=== PATIENT | female | born 1935 | race Caucasian/White ===

== ENCOUNTER 2016-12-16 20:22 | Inpatient (IN) | payer OTHER, MEDICAID ==
[~2016-12-16] VITALS: Ht 149.9 cm; Wt 66.5 kg
[~2016-12-16 20:22] MED LIST: A/B OTIC15 ML; CLA10 PO; COR200 PO; COR6 PO; COREG12.5 MG PO; JANUMET PO; JANUMET1 TAB PO; LOT1C TOP; NAP500 PO; PANTOPRAZOLE SO40 M1 PO; PLA75 PO; RAN500A PO; RESTORIL15 MG PO; VITAMIN D32000 I2 PO; XARELTO20 M1 PO; ZES5 PO; ZOFRAN ODT4 MG SL
[2016-12-16 21:41] LABS: BASOPHIL % 0.6 % (0-2); PLATELET COUNT 176 x10^3mcL (130-400); RED CELL DISTRIBUTION WIDTH 13.8 % (11.5-14.5)
[2016-12-16 21:49] LABS: CALCIUM 8.6 mg/dL (8.5-10.1); CARBON DIOXIDE 29.3 mmol/L (21-32); CHLORIDE SERUM 104 mmol/L (98-107); CREATININE SERUM 0.8 mg/dL (0.6-1.0); GLUCOSE SERUM 134 mg/dL (74-106); POTASSIUM SERUM 4.3 mmol/L (3.5-5.1); SODIUM SERUM 140 mmol/L (136-145)
[2016-12-16 21:54] LABS: ALBUMIN 3.8 g/dL (3.4-5.0); ALKALINE PHOSPHATASE 73 U/L (46-116); ALT/SGPT 15 U/L (14-59); AST/SGOT 16 U/L (15-37); BILIRUBIN TOTAL 0.65 mg/dL (0.20-1.00); TOTAL PROTEIN, SERUM 7.2 g/dL (6.4-8.2)
[2016-12-16 22:08] LABS: CK-MB 1.8 ng/mL (0-3.6)
[2016-12-17] VITALS (7 sets, daily range): BP systolic 99–131; BP diastolic 54–79
[2016-12-17 01:05] LABS: MAGNESIUM 1.9 mg/dL (1.8-2.4); PHOSPHOROUS 3.4 mg/dL (2.5-4.9)
[2016-12-17 01:08] LABS: CHOLESTEROL/HDL RATIO 2.5
[2016-12-17 01:14] LABS: T3 TOTAL 1.28 ng/mL
[2016-12-17 01:17] LABS: FREE T4 1.43 ng/dL (0.76-1.46); FREE THYROXINE INDEX 2.9 ug/dL (1.4-4.5); T4(THYROXINE) 8.4 ug/dL (4.7-13.3)
[2016-12-18 06:02] LABS: BASOPHIL % 0.7 % (0-2); PLATELET COUNT 155 x10^3mcL (130-400); RED CELL DISTRIBUTION WIDTH 14.1 % (11.5-14.5)
[2016-12-18 06:09] VITALS: BP 109/64
[2016-12-18 06:48] LABS: CALCIUM 8.7 mg/dL (8.5-10.1); CARBON DIOXIDE 27.9 mmol/L (21-32); CHLORIDE SERUM 108 mmol/L (98-107); CREATININE SERUM 0.8 mg/dL (0.6-1.0); GLUCOSE SERUM 103 mg/dL (74-106); PHOSPHOROUS 4.1 mg/dL (2.5-4.9); POTASSIUM SERUM 4.1 mmol/L (3.5-5.1); SODIUM SERUM 143 mmol/L (136-145)
[2016-12-18 07:35] VITALS: BP 115/62
[2016-12-18 09:48] VITALS: BP 114/62
[2016-12-18 11:11] VITALS: BP 115/62
[2016-12-18] MEDS ORDERED: JANUMET 50-1,01 EACH PO (11:31)
== END 2016-12-18 12:22 | disposition home or self-care (01) | DRG 205 ==
LOC: ED 20:22 → DU 23:22 → ED 23:57 → DU 23:57
PROVIDERS: Emergency Medicine; ADMIT Family Medicine
DX: M94.0 Chondrocostal junction syndrome [Tietze] (principal); N17.0 Acute kidney failure with tubular necrosis; I42.0 Dilated cardiomyopathy; G90.9 Disorder of the autonomic nervous system, unspecified; E86.0 Dehydration; I11.0 Hypertensive heart disease with heart failure; E11.65 Type 2 diabetes mellitus with hyperglycemia; Z95.810 Presence of automatic (implantable) cardiac defibrillator
CPT/HCPCS: 82962; 83880; 84439; 97110-GP; 97116-GP; 97530-GP; C9113; J7030; J7040; Q0092

== ENCOUNTER 2018-09-29 06:45 | Emergency (ER) | payer OTHER, MEDICAID ==
[~2018-09-29] VITALS: Ht 152.4 cm; Wt 60.3 kg
[~2018-09-29 06:45] MED LIST changes: +JANUMET 50-1,01 EACH PO
[2018-09-29 06:52] VITALS: Ht 152.4 cm; Wt 60.3 kg
[2018-09-29 08:05] LABS: BASOPHIL % 0.3 % (0-2); PLATELET COUNT 158 x10^3mcL (130-400)
[2018-09-29 08:06] LABS: CALCIUM 8.7 mg/dL (8.5-10.1); CARBON DIOXIDE 29.3 mmol/L (21-32); CHLORIDE SERUM 103 mmol/L (98-107); GLUCOSE SERUM 182 mg/dL (74-106); POTASSIUM SERUM 4.2 mmol/L (3.5-5.1); SODIUM SERUM 138 mmol/L (136-145)
[2018-09-29 08:09] LABS: ALBUMIN 3.6 g/dL (3.4-5.0); ALKALINE PHOSPHATASE 80 U/L (46-116); ALT/SGPT 15 U/L (14-59); AST/SGOT 16 U/L (15-37); BILIRUBIN TOTAL 1.07 mg/dL (0.20-1.00); TOTAL PROTEIN, SERUM 7.6 g/dL (6.4-8.2)
[2018-09-29 08:18] LABS: UA SPECIFIC GRAVITY >=1.030 (1.005-1.035); microscopic required? YES; urine erythrocyte TRACE (NEGATIVE)
[2018-09-29] MEDS ORDERED: MAGNESIUM OXID400 MG PO (08:39)
[2018-09-29] MEDS ORDERED: ELIQUIS2.5 MG PO (08:39)
[2018-09-29] MEDS ORDERED: VITAMIN D50000 I4 PO (08:39)
[2018-09-29] MEDS ORDERED: BACTRIM DS1 TAB PO (08:41)
[2018-09-29] MEDS ORDERED: MULTAQ400 MG PO (08:42)
[2018-09-29] MEDS ORDERED: LIPI20 PO (08:42)
[2018-09-29] MEDS ORDERED: BACO TOP (08:42)
[2018-09-29] MEDS ORDERED: TRIAMCINOLONE AC0.51 (08:43)
[2018-09-29 12:47] VITALS: BP 101/61
== END 2018-09-29 12:58 | disposition home or self-care (01) ==
LOC: ED 06:45
PROVIDERS: Emergency Medicine
DX: B34.9 Viral infection, unspecified (principal); E11.9 Type 2 diabetes mellitus without complications; E78.5 Hyperlipidemia, unspecified; I50.9 Heart failure, unspecified; I11.0 Hypertensive heart disease with heart failure; E78.00 Pure hypercholesterolemia, unspecified; M81.0 Age-related osteoporosis without current pathological fracture; M19.90 Unspecified osteoarthritis, unspecified site; Z86.73 Personal history of transient ischemic attack (TIA), and cerebral infarction without residual deficits; Z95.0 Presence of cardiac pacemaker
CPT/HCPCS: 87804; J1885; J2405; J3490; J7030; Q0092

== ENCOUNTER 2019-04-30 22:53 | Emergency (ER) | payer OTHER, MEDICAID ==
[~2019-04-30] VITALS: Ht 149.9 cm; Wt 68.0 kg
[~2019-04-30 22:53] MED LIST changes: +BACO TOP; +BACTRIM DS1 TAB PO; +ELIQUIS2.5 MG PO; +LIPI20 PO; +MAGNESIUM OXID400 MG PO; +MULTAQ400 MG PO; +TRIAMCINOLONE AC0.51; +VITAMIN D50000 I4 PO
[2019-04-30 23:19] VITALS: Ht 149.9 cm; Wt 68.0 kg
[2019-05-01 02:40] VITALS: BP 116/70
== END 2019-05-01 02:41 | disposition home or self-care (01) ==
LOC: ED 22:53
DX: L30.9 Dermatitis, unspecified (principal); I11.0 Hypertensive heart disease with heart failure; I50.9 Heart failure, unspecified; E11.9 Type 2 diabetes mellitus without complications; E78.00 Pure hypercholesterolemia, unspecified; M19.90 Unspecified osteoarthritis, unspecified site; M81.0 Age-related osteoporosis without current pathological fracture; Z95.0 Presence of cardiac pacemaker; Z86.73 Personal history of transient ischemic attack (TIA), and cerebral infarction without residual deficits
CPT/HCPCS: J1100

== ENCOUNTER 2019-06-09 19:42 | Emergency (ER) | payer OTHER, MEDICAID ==
[~2019-06-09] VITALS: Ht 160 cm; Wt 95.3 kg
[2019-06-09 19:45] VITALS: Ht 160 cm; Wt 95.3 kg
[2019-06-09 21:15] VITALS: BP 117/43
== END 2019-06-09 21:15 | disposition home or self-care (01) ==
LOC: ED 19:42
DX: L03.115 Cellulitis of right lower limb (principal); I11.0 Hypertensive heart disease with heart failure; I50.9 Heart failure, unspecified; E11.9 Type 2 diabetes mellitus without complications; E78.00 Pure hypercholesterolemia, unspecified; M19.90 Unspecified osteoarthritis, unspecified site; Z98.890 Other specified postprocedural states
CPT/HCPCS: J0696

== ENCOUNTER 2019-09-16 18:40 | Inpatient (IN) | payer OTHER, MEDICAID ==
[~2019-09-16] VITALS: Ht 152.4 cm; Wt 61.5 kg
[2019-09-16 18:48] VITALS: Ht 152.4 cm; Wt 61.5 kg
--- NOTE | 2019-09-16 19:22 | NUR ---
PT PRESENTS TO ED WITH [facility] FROM HOME C/O GEN ABDOMINAL PAIN X 2 DAYS. PER PT SHE HAS NOT HAD A BOWEL MOVEMENT IN 4 DAYS. PT ABDOMEN IS SOFT AND NON TENDER. BOWEL SOUNDS HEARD IN ALL 4 QUADRANTS. PT STATES THAT SHEHAS BEEN SICK WITH THE FLU X 1 WEEK AGO, HOWEVER DENIES ANY OF THOSE SXS NOW. PT HAS AUDIBLE WET COUGH HEARD. PT HAS DIMINISHED LUNG SOUNDS IN ALL MARTÍNEZ. PT AXO X4. PT SPEAKING IN CLEAR AND FULL SENTENES. PT IN 10 PAIN. PT STATES THAT SHE WAS AT [facility] ON [address] A FEW DAYS AGO BECAUSE HER PACEMAKER SHOCKED HER, BUT DENIES CHEST PAIN AT THIS TIME. PT IN MILD DISTRESS AT THSI TIME. AWAITING MSE. PT CONNECTED TO FULL CM AND PULSE OX MONITORS. IRREGULAR RHYTHM SEEN ON THE MONTIOR. READ EKG AT THIS TIME
--- NOTE | 2019-09-16 19:28 | NUR ---
PT STATES THAT IT IS A PACEMAKER AND DEFIBRILLATOR. NO PACER SPIKES SEEN ON EKG. PT APPEARS TO BE IN AFIB
--- NOTE | 2019-09-16 19:32 | NUR ---
PT TAKEN TO XRAY VIA WHEELCHAIR AT THIS TIME
[2019-09-16 19:56] LABS: BASOPHIL % 0.3 % (0-2); PLATELET COUNT 221 x10^3mcL (130-400); RED CELL DISTRIBUTION WIDTH 13.5 % (11.5-14.5)
[2019-09-16 20:28] LABS: CALCIUM 8.6 mg/dL (8.5-10.1); CARBON DIOXIDE 24.8 mmol/L (21-32); CHLORIDE SERUM 100 mmol/L (98-107); CREATININE SERUM 0.7 mg/dL (0.6-1.0); GLUCOSE SERUM 166 mg/dL (74-106); POTASSIUM SERUM 3.4 mmol/L (3.5-5.1); SODIUM SERUM 136 mmol/L (136-145)
[2019-09-16 20:36] LABS: ALKALINE PHOSPHATASE 67 U/L (46-116); ALT/SGPT 22 U/L (14-59); AST/SGOT 18 U/L (15-37); BILIRUBIN TOTAL 0.93 mg/dL (0.20-1.00); TOTAL PROTEIN, SERUM 7.4 g/dL (6.4-8.2)
--- NOTE | 2019-09-16 22:51 | NUR ---
WAITING TO START ABX FOR BLOOD CULTURE DRAW AT THIS TIME
[2019-09-16] MEDS ORDERED: ELIQUIS2.5 MG PO (23:04)
[2019-09-16] MEDS ORDERED: ESCITALOPRAM OX10 MG PO (23:05)
--- NOTE | 2019-09-16 23:24 | NUR ---
RESIDENTS AT BEDSIDE AT THIS TIME FAMILY AT BEDSIDE WELL
[2019-09-16 23:46] LABS: MAGNESIUM 1.7 mg/dL (1.8-2.4); PHOSPHOROUS 3.9 mg/dL (2.5-4.9)
--- NOTE | 2019-09-16 23:52 | NUR ---
REPORT TERRY MORELAND RN. ALL QUESTIONS AND CONCERNS ADDRESSED AT THIS TIME
--- NOTE | 2019-09-17 00:10 | NUR ---
ADMITTED PT FROM ER WITH C/O ABDOMINAL PAIN.NO N/V NOTED AT THIS TIME WITH GRAND DAUGHTER AT BEDSIDE HELPING WITH TRANSLATION.UKRAINIAN SPEAKING ONLY.C/O NO BM X 2WKS.ADMITTING DX PNEUMONIA.PT WITH ON AND OFF PRODUCTIVE COUGHING WITH REPORTS OF SMALL WHITISH PHLEGM.DIMINISHED BREATHSOUNDS.O2 SAT @ 96% ROOMAIR.BP 109/65 MMHG,HR 61.PLACED ON TELE # 16 WITH READING AFIB.CARDIZEM 5 MG IVP ADMINISTERED ORDERED.ADMISSION CARE RENDERED.ZITHROMAX IV ATB STILL INFUSING FROM ER.ADMISSION CARE RENDERED.ORIENTATION TO ROOM AND CALL BUTTON PROVIDED.IN NO DISTRESS.WILL CONTINUE TO MONITOR.
--- NOTE | 2019-09-17 01:01 | NUR ---
REFUSED PO POTASSIUM AND MAG CITRATE.EXPLAINED IMPORTANCE OF MEDS BUT STRONGLY REFUSING.ONLY TOOK PO MAGNESIUM.GRAND DAUGHTER AT BEDSIDE ALSO HELPING WITH TRANSLATION .
[2019-09-17 01:03] VITALS: BP 109/65
[2019-09-17 01:13] LABS: FREE T4 1.85 ng/dL (0.76-1.46); FREE THYROXINE INDEX 3.5 ug/dL (1.4-4.5)
[2019-09-17 02:11] LABS: T3 TOTAL 0.94 ng/mL
--- NOTE | 2019-09-17 02:35 | NUR ---
CALLED [facility] AND SPOKE WITH CHARLY REGARDING ORDER FOR PACEMAKER INTERROGATION.INFORMATION GIVEN AND WOULD SENT OUT CITY SURVEYOR TO INTERROGATE PACEMAKER.WILL ENDORSE TO AM NURSE.
[2019-09-17 03:19] LABS: CHOLESTEROL/HDL RATIO 4.5
--- NOTE | 2019-09-17 04:46 | NUR ---
PT SLEPT WITH INTERVALS WITH DAUGHTER AT BEDSIDE.BM X1 TO LARGE LOOSE STOOL AFTER SIPS OF MAG CITRATE EARLIER.DENIES ABDOMINAL PAIN.NO N/V NOTED.DENIES CHESTPAIN.HR NOW @ LOW 90'S.NO ASE NOTED FROM ZITHROMAX IV ATB.ALL NEEDS MET.WILL CONTINUE TO MONITOR.
[2019-09-17 05:14] VITALS: BP 107/79
[2019-09-17 07:08] LABS: BASOPHIL % 0.5 % (0-2); PLATELET COUNT 195 x10^3mcL (130-400); RED CELL DISTRIBUTION WIDTH 12.9 % (11.5-14.5)
--- NOTE | 2019-09-17 07:19 | NUR ---
RECEIVED REPORT FROM ANICETO BARAHONA. PATIENT RESTING COMFORTABLY IN BED WITH ALL NEEDS MET. SALINE LOCK TO LFA IS PATENT AND INTACT. NO REDNESS OR PAIN. TELE # [address] PT DENIES CHEST PAIN. PT ON ROOM AIR. NO C/O SOB AND NO DISTRESS NOTED. ALL QUESTIONS AND CONCERNS ADDRESSED.
[2019-09-17 07:33] LABS: CALCIUM 8.4 mg/dL (8.5-10.1); CARBON DIOXIDE 26.2 mmol/L (21-32); CHLORIDE SERUM 104 mmol/L (98-107); CREATININE SERUM 0.7 mg/dL (0.6-1.0); GLUCOSE SERUM 152 mg/dL (74-106); PHOSPHOROUS 3.6 mg/dL (2.5-4.9); POTASSIUM SERUM 3.3 mmol/L (3.5-5.1); SODIUM SERUM 139 mmol/L (136-145)
[2019-09-17 08:40] VITALS: BP 108/54
--- NOTE | 2019-09-17 10:20 | NUR ---
TECH IN TO INTERROGATE PACEMAKER. PT ALSO HAS DIARRHEA AND HAD BOWEL MOVEMENT ON BED.
--- NOTE | 2019-09-17 10:32 | NUR ---
ROUNDS: DR QUIRZO, [facility]. PT CURRENTLY IN THE RESTROOM WITH DIARRHEA. REQUESTED FROM MD TO CHANGE PO KLOR TO IV POTASSIUM PATIENT REFUSES TO TAKE IT IT UPSETS HER STOMACH.
--- NOTE | 2019-09-17 10:53 | NUR ---
PATIENT REQUESTING ECHOCARDIOGRAM BE DONE AFTER SHE GETS MEDICATED FOR STOMACH PAIN
[2019-09-17 12:09] VITALS: BP 122/93
--- NOTE | 2019-09-17 13:40 | NUR ---
PATIENT REFUSED ECHOCARDIOGRAM-STATES SHE HAS HER HEART CHECKED EVERY 3 MONTHS
--- NOTE | 2019-09-17 14:12 | NUR ---
IN TO SEE PATIENT AND ASSESS NEEDS AFTER LUNCH. PT SLEEPING COMFORTABLY IN BED. NO NEEDS IDENTIFIED.
--- NOTE | 2019-09-17 16:01 | NUR ---
SPOKE WITH DR CHAND TO REQUEST PATIENT RECEIVE ENSURE WITH ALL MEALS. DR CHAND TO PLACE ORDER.
--- NOTE | 2019-09-17 16:36 | NUR ---
DR WIGGINS IN TO SEE AND ASSESS PATIENT.
[2019-09-17 16:38] VITALS: BP 127/56
--- NOTE | 2019-09-17 17:08 | NUR ---
DR CHAND PAGE GATED TO AGAIN REQUEST ENSURE BE ADDED TO MEALS.
--- NOTE | 2019-09-17 18:31 | NUR ---
PATIENT RESTING IN BED C/O MILD NAUSEA AND DID NOT EAT DINNER. MYLANTA MAALOX UNABLE TO GIVE UNTIL 1999. PT NOTIFIED. SALINE LOCK TO LFA IS PATENT AND INTACT. MILD DICSOMFORT REPORTED DUE TO LOCATION. ALL OTHER NEEDS MET. WILL ENDORSE ALL CARE TO ONCOMING NURSE.
--- NOTE | 2019-09-17 20:00 | NUR ---
RECEIVED PATIEN TIN BED AWAKE, ALERT AND ORIENTED WITH NO C/O PAIN AND DISCOMFORT AT THIS TIME. BREATHING EASY AND NONLABOR SATTING AT 985 RA. TELE#16 AFIB WITH RVR AND OCCASIONAL PVC ON MONITOR, DENIES CHESTPAIN. TRACED EDEMA NOTED TO BLE. HEPLOCK TO RFA FLUSHED WITH NS. WILL CONTINUE TO MONITOR. CALL LIGHT WITHIN REACH.
[2019-09-17 21:12] VITALS: BP 112/60
--- NOTE | 2019-09-18 00:47 | NUR ---
BREATHING EASY AND NONLABOR, APPEAR TO BE SLEEPING THIS TIME. WILL CONTINUE TO MONITOR.
--- NOTE | 2019-09-18 05:13 | NUR ---
CHECKED AT INTERVALS FOR NEEDS NEEDS AND SAFETY. NO SIGNIFICANT CHANGES IN CONDITION NOTED. ALL NEEDS ATTENDED,
[2019-09-18 05:41] VITALS: BP 123/60
[2019-09-18 06:28] LABS: BASOPHIL % 0.5 % (0-2); PLATELET COUNT 209 x10^3mcL (130-400); RED CELL DISTRIBUTION WIDTH 13.4 % (11.5-14.5)
[2019-09-18 06:46] LABS: CALCIUM 8.6 mg/dL (8.5-10.1); CARBON DIOXIDE 27.9 mmol/L (21-32); CHLORIDE SERUM 103 mmol/L (98-107); CREATININE SERUM 0.7 mg/dL (0.6-1.0); GLUCOSE SERUM 95 mg/dL (74-106); PHOSPHOROUS 3.1 mg/dL (2.5-4.9); POTASSIUM SERUM 3.8 mmol/L (3.5-5.1); SODIUM SERUM 138 mmol/L (136-145)
--- NOTE | 2019-09-18 07:12 | NUR ---
RECEIVED REPORT FROM TRISTEN BARAHONA. PATIENT RESTING COMFORTABLY IN BED WITH ALL NEEDS MET. SALINE LOCK TO LFA IS PATENT AND INTACT. NO REDNESS OR PAIN. TELE # [address] PT DENIES CHEST PAIN. PT ON ROOM AIR. NO C/O SOB AND NO DISTRESS NOTED. PT NOTIFIED OF POSSIBLE PROCEDURE AND INSTRUCTED NOT TO EAT OR DRINK ANYTHING TO PREPARE. DR CARTER TO SEE PATIENT AND DISCUSS PROCEDURE IF HE DEEMS NECESSARY. ALL QUESTIONS AND CONCERNS ADDRESSED.
[2019-09-18 08:21] VITALS: BP 125/76
--- NOTE | 2019-09-18 11:01 | NUR ---
DR CARTER IN TO SEE PATIENT, PERFORM ASSESSMENT, AND DISCUSS EGD. PT AGREEABLE TO PROCEDURE. CONSENT AND CHECKLIST COMPLETED.
--- NOTE | 2019-09-18 11:25 | NUR ---
REPORT GIVEN TO VIRAL BARAHONA IN GI LAB. ALL QUESTIONS AND CONCERNS ADDRESSED. DENISE BARAHONA IN TO TAKE PATIENT DOWN FOR EGD.
--- NOTE | 2019-09-18 12:41 | NUR ---
RECEIVED REPORT FROM POST OP RN. PT EGD COMPLETE. DIAGNOSIS LARGE ULCERATED DU MASS??? DR ORDERED TO HOLD ELIQUIS UNTIL PATIENT CAN HAVE REPEAT EGD ON TUESDAY. PT OK TO EAT IF APPETITE ALLOWS.
[2019-09-18 12:53] VITALS: BP 123/71
--- NOTE | 2019-09-18 12:53 | NUR ---
PT RETURNED TO FLOOR FROM EGD. VITALS TAKEN (SEE DOCUMENTATION). PT RESTING COMFORTABLY IN BED WITH ALL NEEDS MET.
--- NOTE | 2019-09-18 17:04 | NUR ---
SPOKE WITH DR CARTER TO INFORM THAT PATIENT WILL NOT BE ABLE TO DRINK CONTRAST FOR CT. DR CARTER WANTS TO WAIT UNTIL CONTRAST CAN BE TOLERATED. HE DOES NOT WANT THE SCAN WITHOUT BOTH IV AND PO CONTRAST. CT CALLED AND NOTIFIED.
[2019-09-18 17:36] VITALS: BP 106/65
--- NOTE | 2019-09-18 19:10 | NUR ---
REPORT RECEIVED FROM DAY SHIFT RN. PATIENT WAS SEEN RESTING COMFORTABLY IN BED. NO DISTRESS NOTED. BREATHING EVEN AND UNLABORED ON ROOM AIR. NO SOB OR RESP DISTRESS NOTED. DENIES CHEST PAIN/PRESSURE. NO C/O PAIN. IV TO THE RFA. SALINE LOCK. PATENT AND INTACT. NO REDNESS OR SWELLING NOTED. COMFORTA ND SAFETY MEASURES IN PLACE. BED IS LOCKED AND IN THE LOWEST POSITION. SIDE RAILS UP X2. CALL LIGHT IS WITHIN REACH. WILL CONTINUE TO MONITOR.
--- NOTE | 2019-09-18 19:45 | NUR ---
REPORT GIVEN TO MARCIN BARAHONA. PT RESTING COMFORTABLY IN BED WITH ALL NEEDS MET. ALL QUESTIONS AND CONCERNS ADDRESSED. ALL CARES ENDORSED.
[2019-09-18 20:13] VITALS: BP 122/68
--- NOTE | 2019-09-18 20:13 | NUR ---
FOUNDATION DIGGER REPORTED PT IS SATING AT 92% ON ROOM AIR. PLACED 2L NC ON PATIENT; NOW SATING 95%. NO DISTRESS NOTED. BREATHING EVEN. WILL CONTINUE TO MONITOR.
--- NOTE | 2019-09-18 21:34 | NUR ---
PATIENT REFUSED SCHEDULED MED. BS 155 REFUSED INSULIN. EDUCATED PATIENT ON THE IMPROTANCE OF TAKING MEDICATIONS. PATIENT REFUSED.
--- NOTE | 2019-09-19 01:20 | NUR ---
RESTING IN BED WITH EYES CLOSED. NO DISTRESS NOTED. BREATHING EVEN AND UNLABORED ON 2LNC. NO SOB OR RESP DISTRESS NOTED. SAFETY MEASURES IN PLACE. CALL LIGHT IS WITHIN REACH. WILL CONTINUE TO MONITOR.
[2019-09-19 05:33] VITALS: BP 102/69
[2019-09-19 06:35] LABS: BASOPHIL % 0.3 % (0-2); PLATELET COUNT 203 x10^3mcL (130-400); RED CELL DISTRIBUTION WIDTH 13.5 % (11.5-14.5)
[2019-09-19 06:58] LABS: CALCIUM 8.3 mg/dL (8.5-10.1); CARBON DIOXIDE 30.3 mmol/L (21-32); CHLORIDE SERUM 102 mmol/L (98-107); CREATININE SERUM 0.7 mg/dL (0.6-1.0); GLUCOSE SERUM 165 mg/dL (74-106); MAGNESIUM 1.9 mg/dL (1.8-2.4); PHOSPHOROUS 2.9 mg/dL (2.5-4.9); POTASSIUM SERUM 4.1 mmol/L (3.5-5.1); SODIUM SERUM 139 mmol/L (136-145)
--- NOTE | 2019-09-19 07:30 | NUR ---
PT IS AAOX4, LITHUANIAN SPEAKING. TELE [address] READING PACED ON DEMAND, UNDERLYING RHTHYM NSR WITH PVCS. RESP EVEN, SHALLOW, UNLABORED. LUNG SOUNDS DIMINISHED BILATERALLY. PT HAS C/O DIARRHEA. ABDOMEN SOFT, NONTENDER, NONDISTENDED. BOWEL SOUNDS ACTIVE X4 QUADS. DENIES N/V. NO DIARRHEA AT THIS TIME. PT HAS BLE TRACE EDEMA. PERIPHERAL PULSES MODERATELY PALPABLE. SKIN WARM AND CDI. IV CATH TO FRA 20 G FLUSHED, PATENT AND S/L. SITE WNL. COVERED WITH CDI OCCLUSIVE DRESSING. PT DENIES PAIN AND DISCOMFORT AT THIS TIME. CALL LIGHT WITHIN REACH. BED IN LOWEST POSITION. BED ALARM ON. FALL PROTOCOL MAINTAINED.
--- NOTE | 2019-09-19 07:35 | NUR ---
RESTING IN LONG INTERVALS THROUGHOUT THE NIGHT. NO ACUTE CHANGES NOTED. BREATHING EVEN AND UNLABORED. NO SOB NOTED. NO DISTRESS NOTED. SAFETY MEASURES IN PLACE. ALL NEEDS AND CONCERNS ADDRESSED. CALL LIGHT IS WITHIN REACH. WILL ENDORSE CARE TO DAY SHIFT RN.
[2019-09-19 08:03] VITALS: BP 101/71
--- NOTE | 2019-09-19 08:33 | NUR ---
PT COMPLETED ORAL CONTRAST DYE, FOXER MADE AWARE.
--- NOTE | 2019-09-19 09:35 | NUR ---
PT PULLED OUT IV CATH TO RFA WITH CATH INTACT. SITE WNL. COVERED WITH GAUZE AND BANDAID. NEW IV CATH 20G STARTED TO RFA. SITE WNL COVERED WITH CDI OCCLUSIVE DRESSING. PT TOLERATED PROCEDURE WELL.
--- NOTE | 2019-09-19 09:40 | NUR ---
SCHEDULED MEDS GIVEN AND TOLERATED WELL. B/P 107/69, (81), HR 91. RESP EVEN AND UNLABORED. 02 N/C AT [address] PT DENIES PAIN AT THIS TIME. CALL LIGHT WITHIN REACH .
--- NOTE | 2019-09-19 10:36 | NUR ---
PT IS AAOX4, ALBANIAN SPEAKING. TELE [address] READING PACED ON DEMAND, UNDERLYING RHTHYM NSR WITH PVCS. RESP EVEN, SHALLOW, UNLABORED. LUNG SOUNDS DIMINISHED BILATERALLY. PT HAS C/O DIARRHEA. ABDOMEN SOFT, NONTENDER, NONDISTENDED. BOWEL SOUNDS ACTIVE X4 QUADS. DENIES N/V. NO DIARRHEA AT THIS TIME. PT HAS BLE TRACE EDEMA. PERIPHERAL PULSES MODERATELY PALPABLE. SKIN WARM AND CDI. IV CATH TO FRA 20 G FLUSHED, PATENT AND S/L. SITE WNL. COVERED WITH CDI OCCLUSIVE DRESSING. PT DENIES PAIN AND DISCOMFORT AT THIS TIME. CALL LIGHT WITHIN REACH. BED IN LOWEST POSITION. BED ALARM ON. FALL PROTOCOL MAINTAINED.
--- NOTE | 2019-09-19 11:32 | NUR ---
CALLED DR. WIGGINS AND LEFT MESSAGE REGARDING PT HAVING 6 SECOND RUN OF VTACH. AWAITING CALL BACK.
--- NOTE | 2019-09-19 11:49 | NUR ---
ZAYRA RICHARDSON MADE AWARE THAT PT HAS 6 SECOND RUN OF VTACH. NO NEW ORDERS AT THIS TIME. WILL CONTINUE TO MONITOR.
--- NOTE | 2019-09-19 12:15 | NUR ---
PT BACK FROM CT SCAN AT THIS TIME.
--- NOTE | 2019-09-19 12:30 | NUR ---
BLOOD SUGAR 140, NO INSULIN GIVEN PER RISS. PT DENIES PAIN AT THIS TIME. PT IS SITTING UP IN BED EATING LUNCH. WILL CONTINUE TO MONITOR.
[2019-09-19 12:32] VITALS: BP 110/74
--- NOTE | 2019-09-19 13:04 | NUR ---
REPORTED TO ZAYRA RICHARDSON THAT PT IS ON O2 N/C AT 2LPM, WITH COUGH AND DX OF PNEUMONIA. RECEIVED ORDER FOR RT PROTOCOL, XOPENEX 0.63 MG Q 6 HOURS HHN, INCENTIVE SPIROMETER AND TEACHING. PT MADE AWARE. ORDER NOTED AND CARRIED OUT.
--- NOTE | 2019-09-19 14:47 | NUR ---
IV CATH TO RFA INFILTRATED, REMOVED INTACT. COVERED WITH GAUZED AND BANDAID. WARM COMPRESS APPLIED AND ARM ELEVATED. NEW IV CATH 22 G STARTED TO RFA ON THIRD ATTEMPT. SITE WNL. COVERED WITH CDI OCCLUSIVE DRESSING. PT TOLERATED PROCEDURE WELL. CALL LIGHT WITHIN REACH. BED IN LOWEST POSITION.
--- NOTE | 2019-09-19 15:12 | NUR ---
DR. WIGGINS MADE AWARE THAT PT HAD A 6 SECOND RUN OF V-TACH. NO NEW ORDERS AT THIS TIME.
[2019-09-19 15:22] VITALS: BP 110/74
[2019-09-19 16:11] VITALS: BP 116/61
--- NOTE | 2019-09-19 17:02 | NUR ---
BLOOD SUGAR 168, 3 UNITS REG INSULIN SQ GIVEN PER RISS. PT DENIES PAIN. RESP EVEN, SHALLOW WITH NOTED COUGH WITH THIN CLEAR SECRETIONS AT THIS TIME. N/C AT 2LPM IN PLACE. CALL LIGHT WITHIN REACH.
--- NOTE | 2019-09-19 18:02 | NUR ---
PT IS AAOX4. TELE [address] READING NSR WITH INTERMITTENT PVCS. IC CATH TO RFA INTACT, SITE WNL. NO S/S OF INFECTION OR INFILTRATION AT THIS TIME. 02 N/C AT 2LPM IN PLACE. PT HAS HAD COUGH WITH SCANT CLEAR SECRETIONS. PT DENIES PAIN AT THIS TIME. CALL LIGHT WITHIN REACH. WILL ENDORSE ALL CARE TO NOC JUN.
--- NOTE | 2019-09-19 19:05 | NUR ---
REPORT RECEIVED FROM DAY SHIFT RN. PATIENT WAS SEEN RESTING COMFORTABLY IN BED. NO DISTRESS NOTED. BREATHING EVEN AND UNLABORED ON ROOM AIR. NO SOB OR RESP DISTRESS NOTED. NO C/O PAIN. DENIES CHEST PAIN/PRESSURE. COUGH NOTED. IV TO THE RW, 22G. PATENT AND INTACT. NO REDNESS OR SWELLING NOTED. COMFORT AND SAFETY MEASURES IN PLACE. BED IS LOCKED AND IN THE LOWEST POSITION. SIDE RAILS UP X2. CALL LIGHT IS WITHIN REACH. WILL CONTINUE TO MONITOR.
[2019-09-19 19:57] VITALS: BP 93/61; BP 97/55
--- NOTE | 2019-09-19 21:08 | NUR ---
REFUSED 2100 SCHEDULED MEDS. BS 140. PATIENT REPORTS SHE DOESNT WANT TO TAKE THE MEDS BECAUSE SHE HAS AN EGD TOMORROW MORNING. EDUCATED PATIENT THAT IT'S OKAT TO TAKE MEDS AND SHE WILL BE NPO AFTER MIDNIGHT. PATIENT STATES SHE DOESN'T WANT THE MEDS TO UPSET HER STOMACH. PATIENT REFUSED MEDS. DID NOT GIVE COREG DUE TO LOW SBP. WILL CONTINUE TO MONITOR.
[2019-09-20] VITALS (7 sets, daily range): BP systolic 88–118; BP diastolic 37–72
--- NOTE | 2019-09-20 01:50 | NUR ---
ASSITED PATIENT TO BATHROOM AND BACK TO BED. IV NOT FLUSHING. BLOOD NOTED IN EXTENSION TUBING. REMOVED OLD EXTENSTION TUBING AND PLACED NEW ONE. FLUSHES WELL. PATENT AND INTACT. PATIENT IS HAVING A PRODUCTIVE COUGH WITH SCANT WHITE SECRETIONS. PLACE BED IN HIGH FOLWERS POSITION. DENIES SOB. ON ROOM AIR. SAFETY MEASURES IN PLACE. CALL LIGHT IS WITHIN REACH. WILL CONTINUE TO MONITOR
[2019-09-20 06:21] LABS: BASOPHIL % 0.4 % (0-2); PLATELET COUNT 212 x10^3mcL (130-400); RED CELL DISTRIBUTION WIDTH 13.1 % (11.5-14.5)
--- NOTE | 2019-09-20 06:28 | NUR ---
RESTING IN BED AT THIS TIME. NO ACUTE CHANGES NOTED. BREATHING EVEN AND UNLABORED ON ROOM AIR. PRODUCTIVE COUGH W/ SCANT WHITE SPUTUM. NO C/O PAIN. IV TO THE RW PATENT AND INTACT. NPO FOR EGD TODAY. CHG WIPES PROVIDED. NO DISTRESS NOTED. SAFETY MEASURES IN PLACE. CALL LIGHT IS WITHIN REACH. ALLNEEDS AND CONCERNS ADDRESSED. WILL ENDORSE CARE TO DAY SHIFT RN.
[2019-09-20 06:36] LABS: CALCIUM 8.7 mg/dL (8.5-10.1); CARBON DIOXIDE 30.1 mmol/L (21-32); CHLORIDE SERUM 104 mmol/L (98-107); CREATININE SERUM 0.7 mg/dL (0.6-1.0); GLUCOSE SERUM 108 mg/dL (74-106); POTASSIUM SERUM 3.4 mmol/L (3.5-5.1); SODIUM SERUM 138 mmol/L (136-145)
--- NOTE | 2019-09-20 07:30 | NUR ---
PT IS AAOX4. RESP EVEN AND UNLABORED. PT HAS BEEN PREPPED FOR SURGERY AND ALL FORMS COMPLETED AND IN CHART. TELE [address] READING NSR, PACED ON DEMAND. PT BLE TRACE EDEMA. PERIPHERAL PULSES MODERATELY PALPABLE. CAP REFILL <3 SECS. SKIN WARM AND INTACT. RESP EVEN, SHALLOW AND DIMINISHED. PT ON N/C AT 2LPM. NO COUGH OR SOB NOTED. PT HAS COUGH WITH SCANT CLEAR SECRETIONS. PT HAS C/O DIARRHEA. ABDOMEN SOFT, NONTENDER, ROUND, NONDISTENDED. BOWEL SOUNDS ACTIVE X 4 QUADS. PT DENIES N/V. IV CATH TO RW PATENT, SITE WNL. NO S/S OF INFECTION OR INFILTRATION. PT DENIES PAIN AT THIS TIME. CALL LIGHT WITHIN REACH. BED IN LOWEST POSITION.
--- NOTE | 2019-09-20 08:40 | NUR ---
PT'S IV CATH S/L. PT TAKEN FOR EGD AT THIS TIME. REPORT GIVEN TO JUN VALDES.
--- NOTE | 2019-09-20 10:05 | NUR ---
PT BACK FROM EGD. REPORT GIVEN BY JUN TA. PT HAS ULCERATED MASS AT DUODENAL BULB. PT RECEIVED FENTANYL 50MG IVP AND AND VERSAD 2 MG IVP. VS: 106/56, HR 84. IVF STARTED. RESP EVEN AND UNLABORED. NO DISTRESS NOTED. CALL LIGHT WITHIN REACH. BED IN LOWEST POSITION.
--- NOTE | 2019-09-20 10:45 | NUR ---
PT IS RESTING COMFORTABLY, VS: 98/60, HR 88. RESP EVEN AND UNLABORED. NO DISTRESS NOTED. CALL LIGHT WITHIN REACH.
--- NOTE | 2019-09-20 11:41 | NUR ---
BLOOD SUGAR 120, NO INSULIN GIVEN PER RISS.
--- NOTE | 2019-09-20 13:33 | NUR ---
PT IS RECEIVING I/S TRAINING AT THIS TIME. DENIES PAIN. RESP EVEN AND UNLABORED. N/C AT 2 LPM INTACT. CALL LIGHT WITHIN REACH.
--- NOTE | 2019-09-20 14:31 | NUR ---
RECEIVED ORDER FROM DEBRA BAUTISTA NP, KLOR CON 20MEQ PO X1 NOW FOR K+=3.4. ORDER NOTED AND CARRIED OUT, PT MADE AWARE.
--- NOTE | 2019-09-20 15:04 | NUR ---
KLOR CON 20MEQ PO GIVEN FOR k+= 3.4. RESP EVEN AND UNLABORED. NO DISTRESS NOTED. N/C AT 2LPM IN PLACE. CALL LIGHT WITHIN REACH.
--- NOTE | 2019-09-20 16:35 | NUR ---
BLOOD SUGAR 127, NO INSULIN INDICATED PER RISS. PT ASSISTED TO BATHROOM AND BACK TO BED. PT HAD EPISODE OF DIARRHEA. N/C AT 2 LPM INTACT. RESP EVEN AND UNLABORED. PT DENIES PAIN AT THIS TIME. CALL LIGTH WITHIN REACH.
--- NOTE | 2019-09-20 18:59 | NUR ---
PT IS AAOX4. TELE [address] READING AFIB, PACED ON DEMAND. O2 N/C AT 2LPM IN PLACE. IV CATH TO RW WNL. PT DENIES PAIN AND DISCOMFORT AT THIS TIME. CALL LIGHT WITHIN REACH. WILL ENDORSE ALL CARE TO NOC RN.
--- NOTE | 2019-09-20 19:15 | NUR ---
REPORT RECEIVED FROM DAY SHIFT RN. PATIENT WAS SEEN RESTING IN BED COMFORTABLY. NO DISTRESS NOTED. BREATHING EVEN AND UNLABORED ON ROOM AIR. NO SOB OR RESP DISTRESS NOTED. NO C/O PAIN. DENIES CHEST PAIN/PRESSURE. IV TO THE RW, 22G. PATENT AND INTACT. NO REDNESS OR SWELLING NOTED. COMFORT AND SAFETY MEASURES IN PLACE. BED IS LOCKED AND IN THE LOWEST POSITION. SIDE RAILS UP X2. CALL LIGHT IS WITHIN REACH. WILL CONTINUE TO MONITOR
--- NOTE | 2019-09-20 19:51 | NUR ---
WINCH RUNNER REPORTED BP 88/37 (64), HR 83. PATIENT IS ASYMPTOMATIC, LAYING IN BED. DENIES DIZZINESS. DR GAITAN AWARE. NO NEW ORDERS AT THIS TIME. WILL CONTINUE TO MONITOR
--- NOTE | 2019-09-20 20:40 | NUR ---
SPOKE WITH DAUGHTER, NILDA, ON THE PHONE. UPDATED DAUGHTER. SHE SAID SHE'LL COME AROUND 2200 TO VISIT HER MOTHER.
--- NOTE | 2019-09-20 23:10 | NUR ---
DAUGHTER, NILDA, W/ PATIENT AT BEDSIDE
--- NOTE | 2019-09-21 01:37 | NUR ---
RESTING IN BED W/ EYES CLOSED. NO APPARENT DISTRESS NOTED. BREATHING EVEN AND UNLABORED ON 2L NC. NO SOB NOTED. NO S/S OF PAIN NOTED. SAFETY MEASURES IN PLACE. CALL LIGHT IS WITHIN REACH. WILL CONTINUE TO MONITOR.
--- NOTE | 2019-09-21 03:25 | NUR ---
RESTING IN BED W/ EYES CLOSED. NO DISTRESS NOTED. BREATHING EVEN AND UNLABORED. NO SOB NOTED. NO S/S OF PAIN NOTED. SAFETY MEASURES IN PLACE. CALL LIGHT IS WITHIN REACH. WILL CONTINUE TO MONITOR.
[2019-09-21 05:00] VITALS: BP 104/56
--- NOTE | 2019-09-21 05:41 | NUR ---
ONLY 150 ML OF ANAMARIA URINE OUT FROM [facility] FOR THE WHOLE SHIFT. NOTIFIED DR GAITAN. PATIENT DID NOT HAVE MUCH INPUT WELL.
--- NOTE | 2019-09-21 06:16 | NUR ---
RESTED IN LONG INTERVALS THROUGHOUT THE NIGHT. NO ACUTE CHANGES NOTED. BREATHING EVEN AND UNLABORED ON 2L NC. NO SOB OR RESP DISTRESS NOTED. DENIES PAIN THROUGHOUT THE NIGHT. DENIES CP. IV TO THE RW. PATENT AND INTACT. NO REDNESS OR SWELLING NOTED. SAFETY MEASURES IN PLACE. CALL LIGHT IS WITHIN REACH. WILL ENDORSE CARE TO DAY SHIFT RN
[2019-09-21 06:17] LABS: BASOPHIL % 0.6 % (0-2); PLATELET COUNT 235 x10^3mcL (130-400); RED CELL DISTRIBUTION WIDTH 13.5 % (11.5-14.5)
[2019-09-21 06:50] LABS: CALCIUM 8.6 mg/dL (8.5-10.1); CARBON DIOXIDE 30.6 mmol/L (21-32); CHLORIDE SERUM 106 mmol/L (98-107); CREATININE SERUM 0.7 mg/dL (0.6-1.0); GLUCOSE SERUM 97 mg/dL (74-106); POTASSIUM SERUM 3.9 mmol/L (3.5-5.1); SODIUM SERUM 141 mmol/L (136-145)
--- NOTE | 2019-09-21 07:00 | NUR ---
RECEIVED REPORT FROM MARCIN BARAHONA AT BEDSIDE, PT RESTING IN BED IN NO ACUTE DISTRESS
--- NOTE | 2019-09-21 07:09 | NUR ---
PHYSICAL THERAPY DAILY NOTES CO-SIGN All documentation done by the Cable Swager for 09/21/19 has been reviewed. I agree with the documentation. Reviewed/Co-Signed by: Misty Oliver PT Documentation Done by:HEATHER ARMSTRONG PTA
--- NOTE | 2019-09-21 07:30 | NUR ---
PT RESTING IN CHAIR, IN NO ACUTE DISTRESS, VERBAL, ABLE TO MAKE NEEDS KNOWN, NO FACIAL DROOP/SLURRED SPEECH, PERRLA, RESP E/U, 2L/MIN, NC, 97%, NO SOB, MULTIPLE EPISODES COUGHING W/ CLEAR SPUTUM, I.S., RT PROTOCOL, TELE #16, HR-86 AT THIS TIME, DENIED CP/PALPITATION, DENIED PAIN/DISCOMFORT, DENIED DIZZINESS/N/V, ABD ROUND AND NON-TENDER TO TOUCH, BS ACTIVE X 4, AMBULATORY W/ ASSIST, PT PROTOCOL, INCONTINENT AT TIMES, BSC, SKIN C/D/W, SEE SKIN ASSESSMENT, IV PATENT AND FLUSHING WELL, DRESSING CDI, PALP PULSES, CAP REFILL < 3S, EQUAL CHELY MIXER OPERATOR VACUUM PAN SALT, TRACE EDEMA BLE, ALL NEEDS ADDRESSED, SAFETY PROTOCOL MAINTAINED, CONTINUE TO MONITOR
--- NOTE | 2019-09-21 08:16 | NUR ---
PER OPERATIONS AND MAINTENANCE TECHNICIAN ZEUS LEDESMA, SELENA O2, O2 SAT NOTED 97 AT THIS TIME W/ O2, 94% AT RA, NO SOB, MULTIPLE EPISODE OF PRODUCTIVE COUGH NOTED, CLEAR SPUTUM AT THIS TIME
[2019-09-21 08:50] VITALS: BP 129/75
--- NOTE | 2019-09-21 09:04 | NUR ---
AM MED GIVEN PER MD ORDER PER EMAR, TOLERATED WELL, NO ASE NOTED AT THIS TIME, EDUCATED PT R/T MED, ASE AND MONITOR, VERBALLY UNDERSTANDING, SAFETY PRECAUTION MAINTAINED, CONTINUE TO MONITOR
--- NOTE | 2019-09-21 10:44 | NUR ---
PT REPORTED PAIN TO (R) FA, 03/28, [place], MEDICATED PER PRN ORDER, TOLERATED WELL, CYBER FORENSICS ANALYST ZEUS MADE AWARE, NEW ORDER OBTAINED FOR US R/O DVT TO (R) FA, PT MADE AWARE, CHARGE NURSE MADE AWARE
[2019-09-21 12:47] VITALS: BP 107/66
--- NOTE | 2019-09-21 13:16 | NUR ---
CALLED DAUGHTER NILDA TO UPDATE PT'S CURRENT CONDITION, LEFT MESSAGE, NO CALL BACK AT THIS TIME, PT MADE AWARE, CHARGE NURSE ANG MADE AWARE
--- NOTE | 2019-09-21 14:23 | NUR ---
PT SLEEPING IN BED, IN NO APPARENT PAIN/DISTRESS, (R) HAND ELEVATED ON PILLOW, HEPLOCKED, O2 SAT NOTED 94%, RA, NO COUGH AT THIS TIME, CONTINUE TO MONITOR
--- NOTE | 2019-09-21 16:17 | NUR ---
SEEN BY SSIS ARCHITECT DR FELICIANO MO, NEW ORDER OBTAINED TO YONAS PT TO [facility], TELE REMOVED AND RETURNED TO ZOË MENDOZA PT IN BED IN NO ACUTE DISTRESS. REPORT NO PAIN/DISCOMFORT AT THIS TIME, CHARGE NURSE ANG MADE AWARE
--- NOTE | 2019-09-21 17:11 | NUR ---
PT RESTING IN BED, IN NO ACUTE DISTRESS, DENIED PAIN/DISCOMFORT/HANKS, DENIED N/V/D, RESP EVEN, RA, NO SOB/COUGH, MEDSURG, SKIN C/D/W, IV PATENT AND FLUSHING WELL, DRESSING CDI, ALL NEEDS ADDRESSED AT THIS TIME, SAFETY PROTOCOL MAINTAINED, COMFORT MEASURE PROVIDED, CAITLIN ENDORSE TO ONCOMING RN
[2019-09-21 17:17] VITALS: BP 99/62
--- NOTE | 2019-09-21 20:00 | NUR ---
Awake and verbally responsive. No respiratory distress noted on room air. Denies pain. Denies n/v. No cough or congestion noted. Ambulating. Will cont.to monitor. Call light within reach.
[2019-09-21 20:11] VITALS: BP 129/55
--- NOTE | 2019-09-22 04:00 | NUR ---
Afebrile. Mo significant change in condition noted. Denies pain. Ambulated. Cont.on IV rocephin, zithromax. In no apparent distress.
[2019-09-22 05:12] VITALS: BP 136/64
[2019-09-22 06:08] LABS: BASOPHIL % 0.7 % (0-2); PLATELET COUNT 235 x10^3mcL (130-400); RED CELL DISTRIBUTION WIDTH 13.8 % (11.5-14.5)
[2019-09-22 06:10] LABS: CALCIUM 8.5 mg/dL (8.5-10.1); CARBON DIOXIDE 29.4 mmol/L (21-32); CHLORIDE SERUM 106 mmol/L (98-107); CREATININE SERUM 0.7 mg/dL (0.6-1.0); GLUCOSE SERUM 77 mg/dL (74-106); POTASSIUM SERUM 3.7 mmol/L (3.5-5.1); SODIUM SERUM 139 mmol/L (136-145)
--- NOTE | 2019-09-22 07:05 | NUR ---
RECIEVED PT RESTING IN BED WITH NO C/O ANY PAIN OR DISTRESS AT THIS TIME. A/O X4 WITH SOME CONFUSION. LUNGS DIMINISHED. ON RA SATURATION AT 96%. NO SOB NOTED. TRACE EDEMA NOTED TO BLLE AND MULTIPLE SCATTERRED AREAS OF ECCHYMOSIS NOTED TO BUE. IV IN RW 22 GUAGE, CDI AND PATENT. SAFETY PRECAUTIONS IN PLACE, CALL LIGHT WITHIN REACH, WILL MONITOR.
--- NOTE | 2019-09-22 08:43 | NUR ---
PT REFUSED IV TREATMENT AND IV. IV REMOVED WITH CATHETER INTACT. NO REDNESS OR INFLAMMATION NOTED TO SITE. PT BEHAVING CONFUSED AND VERBALLY AGGRESSIVE WITH STAFF. ALL NEEDS AND CONCERNS ANSWERED AND MET. CHARGE NURSE AND ZAYRA PEREIRA AWARE. WILL CONTINUE TO MONITOR.
[2019-09-22 09:00] VITALS: BP 116/43
[2019-09-22] MEDS ORDERED: COR200 PO (09:27)
[2019-09-22] MEDS ORDERED: ZES5 PO (09:28)
[2019-09-22] MEDS ORDERED: COR6 PO (09:28)
[2019-09-22] MEDS ORDERED: AMOXICILLIN500 MG PO (09:31)
[2019-09-22] MEDS ORDERED: GOOD SENSE OMEP20 MG PO (09:32)
[2019-09-22] MEDS ORDERED: CLARITHROMYCIN250 MG PO (09:33)
[2019-09-22 10:48] VITALS: BP 116/43
--- NOTE | 2019-09-22 13:03 | NUR ---
PT STABLE TO DISCHARGE PER MD ORDER. ALL DISCHARGE INSTRUCTIONS, EDUCATION, AND PRESCRIPTIONS GIVEN TO PT AND GRANDSON, BOTH VERBALIZE UNDERSTANDING. VS WNL AND NO DISTRESS NOTED. ID BAND REMOVED FROM PT ARM. PT ESCORTED DOWN TO LOBBY VIA WC BY DRAFTER ELECTRONIC AND GRANDSON AT SIDE. ALL PERSONAL BELONGINGS IN HAND.
== END 2019-09-22 12:58 | disposition home or self-care (01) | DRG 391 ==
LOC: ED 18:40 → DU 23:08 → MU 09-21 16:22
PROVIDERS: Emergency Medicine; Internal Medicine; Internal Medicine Gastroenterology; ADMIT General Practice
PROC: 0DB68ZX Excision of Stomach, Via Natural or Artificial Opening Endoscopic, Diagnostic (ICD-10-PCS; 2019-09-20)
PROC: 0DB98ZX Excision of Duodenum, Via Natural or Artificial Opening Endoscopic, Diagnostic (ICD-10-PCS; principal; 2019-09-20 08:00)
DX: K29.70 Gastritis, unspecified, without bleeding (principal); J18.9 Pneumonia, unspecified organism; E44.0 Moderate protein-calorie malnutrition; I50.22 Chronic systolic (congestive) heart failure; I48.91 Unspecified atrial fibrillation; E87.6 Hypokalemia; E83.42 Hypomagnesemia; I50.9 Heart failure, unspecified; I11.0 Hypertensive heart disease with heart failure; E78.5 Hyperlipidemia, unspecified; E11.65 Type 2 diabetes mellitus with hyperglycemia
CPT/HCPCS: 43235; 82962; 84439; 94150; 97110-GP; 97116-GP; 97530-GP; C9113; G0378; J0456; J0696; J1200; J1610; J1815; J2250; J2270; J2310; J2405; J3010; J3490; J7030; J7050; Q0092; Q9966; Q9967

== ENCOUNTER 2020-09-21 15:11 | Emergency (ER) | payer OTHER, MEDICAID ==
[~2020-09-21] VITALS: Ht 162.6 cm; Wt 63.5 kg
[~2020-09-21 15:11] MED LIST changes: +AMOXICILLIN500 MG PO; +CLARITHROMYCIN250 MG PO; +ESCITALOPRAM OX10 MG PO; +GOOD SENSE OMEP20 MG PO
[2020-09-21 15:13] VITALS: Ht 162.6 cm; Wt 63.5 kg
[2020-09-21 17:33] LABS: CALCIUM 8.9 mg/dL (8.5-10.1); CARBON DIOXIDE 25.7 mmol/L (21-32); CHLORIDE SERUM 104 mmol/L (98-107); GLUCOSE SERUM 280 mg/dL (74-106); POTASSIUM SERUM 4.2 mmol/L (3.5-5.1); SODIUM SERUM 138 mmol/L (136-145)
[2020-09-21 17:38] LABS: ALBUMIN 3.6 g/dL (3.4-5.0); ALKALINE PHOSPHATASE 88 U/L (46-116); ALT/SGPT 34 U/L (14-59); AMYLASE 59 U/L (25-115); AST/SGOT 28 U/L (15-37); BILIRUBIN TOTAL 0.7 mg/dL (0.20-1.00); LIPASE 91 IU/L (73-393); TOTAL PROTEIN, SERUM 7.2 g/dL (6.4-8.2)
[2020-09-21 17:51] LABS: PLATELET COUNT 158 x10^3mcL (179-408); RED CELL DISTRIBUTION WIDTH 13.4 % (12.3-17.7)
[2020-09-21 18:36] VITALS: BP 130/92
[2020-09-21 18:45] LABS: rbc morphology (normal/abnorm) NORMAL (NORMAL)
== END 2020-09-21 18:36 | disposition home or self-care (01) ==
LOC: ED 15:11
PROVIDERS: Emergency Medicine
DX: R10.817 Generalized abdominal tenderness (principal); I11.0 Hypertensive heart disease with heart failure; I50.9 Heart failure, unspecified; E11.9 Type 2 diabetes mellitus without complications; E78.00 Pure hypercholesterolemia, unspecified; M19.90 Unspecified osteoarthritis, unspecified site; Z95.0 Presence of cardiac pacemaker; Z86.73 Personal history of transient ischemic attack (TIA), and cerebral infarction without residual deficits; Z20.828 Contact with and (suspected) exposure to other viral communicable diseases
CPT/HCPCS: U0003